=== PATIENT | female | born 1980 | race Caucasian/White ===

== ENCOUNTER 2018-02-20 14:21 | Emergency (ER) | payer OTHER ==
[2018-02-20] MEDS ORDERED: SUMAtriptan SUCCINATE 6 MG/0.5 ML VIAL SQ ONE (14:52)
--- NOTE | 2018-02-20 15:20 | ED Physician Documentation ---
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 - HPI Stated Complaint: headache Chief Complaint: Headache Onset: other (last night) Timing: still present, persistent New Gradual Onset: No Exposure To: none Severity: severe Quality: similar to previous Associated Symptoms: denies: fever, chills, sweating, problems with vision, sensitivity to light, nausea, vomiting, neck pain, stiffness, speech problems, weakness, trouble walking, tingling, numbness, dizziness, light-headedness, other Preceding Symptoms: visual disturbance Exacerbated By: light, noise, movement Further Comments: no - ROS NEURO/PSYCH: denies: confusion, anxiety, depression, fainting, other EYES/ENT: denies: sore throat, difficulty swallowing, sinus pain, drainage, other CVS/RESP: none GI/: denies: abdominal pain, diarrhea, problems urinating, incontinence, other MS/SKIN/LYMPH: denies: muscle aches, back pain, rash, skin lesions, swollen glands, other all systems neg except as marked: Yes - PAST HX Medical History: diabetes, hypertension, migraines, other (anxiety, depression, ) Allergies/Adverse Reactions: Allergies Allergy/AdvReac Type Severity Reaction Status Date / Time acetaminophen Allergy Verified 02/20/18 14:41 [From Darvocet-N] propoxyphene Allergy Verified 02/20/18 14:41 [From Darvocet-N] sertraline [From Zoloft] AdvReac No Reaction Verified 02/20/18 14:41 steroids Allergy Uncoded 02/20/18 14:41 - SOCIAL HX Smoking History: cigarettes - Family HX Family History: none - VITAL SIGNS Vital Signs: Vital Signs Temp Pulse Resp BP Pulse Ox 98.4 F 79 18 118/71 98 02/20/18 15:30 02/20/18 15:30 02/20/18 15:30 02/20/18 15:30 02/20/18 15:30 - REVIEWED ASSESSMENTS Nursing Assessment Reviewed: Yes Vitals Reviewed: Yes Progress - Progress Progress: 1520 Patient states her eyes are better; now complaining pain in bilateral ears , requesting toradol IM. ED Results Lab/Radiology - Orders Orders: ED Orders Category Date Time Status Ketorolac Tromethamine [Toradol] Med 02/20/18 15:21 Discontinued 60 mg .ROUTE .STK-MED ONE Ketorolac Tromethamine [Toradol] Med 02/20/18 15:21 Discontinued 60 mg IM NOW ONE SUMAtriptan SUCCINATE [Imitrex] Med 02/20/18 14:52 Discontinued 6 mg SQ NOW ONE Headache Physical Exam - EXAM General Appearance: moderate distress EENT: no facial swelling, eyes nml inspection, PERRL, photophobia, nml ENT, pharynx nml Respiratory: no resp distress, chest non-tender, breath sounds normal CVS: reg. 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 Higher Functions: alert, oriented x3, nml speech, mood/affect nml Cranial: nml as tested, no evidence of acute CVA Cerebellar: nml as tested, nml gait Sensorimotor: motor nml, sensation nml Discharge Clincal Impression: Migraine Qualifiers: Migraine type: without aura Status migrainosus presence: without status migrainosus Intractability: not intractable Qualified Code(s): G43.009 - Migraine without aura, not intractable, without status migrainosus Referrals: Primary Doctor,No [Primary Care Provider] - 2 Days Additional Instructions: Rest in a cool dark room Follow up with your primary care doctor for maintenance for your migraines. Condition: Stable Disposition: 01 HOME, SELF-CARE Decision to Admit: NO Decision Time: 15:20
[2018-02-20] MEDS ORDERED: KETOROLAC TROMETHAMINE 60 MG/2 ML VIAL ONE (15:21)
[2018-02-20] MEDS ORDERED: KETOROLAC TROMETHAMINE 60 MG/2 ML VIAL IM ONE (15:21)
[2018-02-20 15:32] VITALS: BP 118/71
== END 2018-02-20 15:30 | disposition home or self-care (01) ==
LOC: ED 14:21
DX: G43.009 Migraine without aura, not intractable, without status migrainosus (principal)
CPT/HCPCS: J1885; J3030; 96372; 99284